=== PATIENT | male | born 1960 | race Caucasian/White ===

== ENCOUNTER 2018-09-12 18:23 | Emergency (ER) | payer OTHER ==
[~2018-09-12] VITALS: Ht 175.3 cm; Wt 118.2 kg
[2018-09-12 18:27] VITALS: BP 152/84
== END 2018-09-12 21:00 | disposition home or self-care (01) ==
LOC: ED 20:35
DX: G89.11 Acute pain due to trauma (principal); M54.5 Low back pain; M54.6 Pain in thoracic spine; R51 Headache; M54.2 Cervicalgia; W10.0XXA Fall (on)(from) escalator, initial encounter; Y93.89 Activity, other specified; Y92.59 Other trade areas as the place of occurrence of the external cause; Y99.8 Other external cause status
CPT/HCPCS: 70450; 72072; 72110; 72125; 72220; 99284